=== PATIENT | female | born 1990 | race African-American/Black ===

== ENCOUNTER 2017-05-03 19:55 | Emergency (ER) | payer SELFPAY ==
[2017-05-03] MEDS ORDERED: Ketorolac Tromethamine 60 MG/2 ML VIAL ONE (22:01)
[2017-05-03] MEDS ORDERED: Diazepam 5 MG TAB ONE (22:01)
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
== END 2017-05-03 22:08 | disposition home or self-care (01) ==
LOC: ERS 19:55
DX: M62.838 Other muscle spasm (principal); Z79.2 Long term (current) use of antibiotics
CPT/HCPCS: 96372; J1885

== ENCOUNTER 2017-07-06 10:44 | Emergency (ER) | payer SELFPAY ==
[2017-07-06] MEDS ORDERED: Acetaminophen 500 MG TAB ONE (11:15)
== END 2017-07-06 11:22 | disposition home or self-care (01) ==
LOC: ERS 10:44
DX: J11.1 Influenza due to unidentified influenza virus with other respiratory manifestations (principal)
CPT/HCPCS: 99283

== ENCOUNTER 2018-04-11 17:22 | Emergency (ER) | payer BC, SELFPAY ==
[2018-04-11 19:30] LABS: Pregnancy Test - Urine (BHCG) Negative (Negative); Pregu Control Background? CLEAR/WHITE (CLR/WHITE); Pregu Control Bar Appear? YES (CONTROL BAR); Specific Gravity 1.015 (1.002-1.036)
== END 2018-04-11 20:00 | disposition home or self-care (01) ==
LOC: ERS 17:22
DX: I86.8 Varicose veins of other specified sites (principal); N93.9 Abnormal uterine and vaginal bleeding, unspecified
CPT/HCPCS: 81025; 99283